=== PATIENT | female | born 1990 | race Hispanic/Latino ===

== ENCOUNTER 2017-11-02 02:24 | Emergency (ER) | payer OTHER ==
[2017-11-02 02:37] VITALS: RESP 16
[2017-11-02] MEDS ORDERED: Albuterol-Ipratrop 3 mg / 0.5 (3 ml) UD INH STA (03:51)
[2017-11-02] MEDS ORDERED: Albuterol-Ipratrop 3 mg / 0.5 (3 ml) UD ONE (04:04)
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
[2017-11-02 04:56] LABS: BASO # 0.1 K/uL (0.0-0.2); BASO % 0.7 % (0.0-2.0); EOS # 0.2 K/uL (0.0-0.7); EOS % 1.4 % (0.0-4.0); HEMATOCRIT 38.2 % (34.0-47.0); LYMPH # 2.8 K/uL (1.0-4.3); LYMPH % 20.2 % (20.0-40.0); MEAN CELL VOLUME 89.6 fL (81.0-99.0); MEAN CORPUSCULAR HEMOGLOBIN 31.3 pg (27.0-31.0); MEAN CORPUSCULAR HGB CONC 34.9 g/dL (33.0-37.0); MEAN PLATELET VOLUME 10.4 fL (7.2-11.7); MONO # 1.5 K/uL (0.0-0.8); MONO % 10.9 % (0.0-10.0); RED CELL DISTRIBUTION WIDTH 12.2 % (11.5-14.5)
[2017-11-02] MEDS ORDERED: Iodixanol 320 MG/ML 100 ML BOTTLE IV ONE (04:57)
[2017-11-02 05:03] LABS: ALB/GLOB RATIO 1.1 (1.0-2.1); ALCOHOL SERUM 11 mg/dl (0-10); ALKALINE PHOSPHATASE 50 U/L (38-126); ALT/SGPT 26 U/L (9-52); AST/SGOT 36 U/L (14-36); BILIRUBIN,TOTAL 0.4 mg/dL (0.2-1.3); BLOOD UREA NITROGEN 13 mg/dL (7-17); CALCIUM 8.8 mg/dl (8.6-10.4); CARBON DIOXIDE 26 mmol/L (22-30); CHLORIDE 100 mmol/L (98-107); GFR AFRICAN-AMERICAN > 60; GLUCOSE,RANDOM 84 mg/dL (65-105); PHOSPHOROUS 3.6 mg/dL (2.5-4.5); POTASSIUM 3.5 mmol/L (3.6-5.2); SODIUM 135 mmol/L (132-148); TOTAL PROTEIN 7.6 g/dL (6.3-8.3)
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
[2017-11-02 06:54] VITALS: BP 99/60; PULSE 82; TEMP 98.5
[2017-11-02 07:24] VITALS: O2SAT 97
--- NOTE | 2017-11-02 08:53 | RAD ---
HISTORY: Sepsis Patient COMPARISON: No prior. FINDINGS: LUNGS: The lungs are well inflated and clear. PLEURA: No significant pleural effusion identified, no pneumothorax apparent. CARDIOVASCULAR: Normal. OSSEOUS STRUCTURES: No significant abnormalities. VISUALIZED UPPER ABDOMEN: Normal. OTHER FINDINGS: None. IMPRESSION: No active pulmonary disease.
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
== END 2017-11-02 06:57 | disposition home or self-care (01) ==
LOC: C.ER 02:24
DX: S41.051A Open bite of right shoulder, initial encounter (principal); Y04.1XXA Assault by human bite, initial encounter
CPT/HCPCS: 70491; 71010; 73120; 80053; 80320; 80324; 80345; 80346; 80349; 80353; 80358; 80361; 83992; 84100; 84703; 85025; 94640; 99283; Q9967